=== PATIENT | female | born 1970 | race Caucasian/White ===

== ENCOUNTER 2016-12-26 16:07 | Inpatient (IN) | payer OTHER ==
--- NOTE | ~2016-12-26 | OP ---
Record Of Operation [facility] [address] [place]. [address] NAME: EDWARDO VENEGAS : 74 STATUS : ADM IN [facility]#: [id number] AGE: 46 ADM/REG DATE : 12/26/16 MR#: [id number] REPORT SERV DATE: 12/30/16 DICTATED BY: GRISEL DIEHL DATE: 12/30/16 REPORT STATUS : Draft TRANSCRIBED BY: MODL DATE: 12/30/16 DATE OF PROCEDURE: 12/30/2016 PREOPERATIVE DIAGNOSES: 1. Right ureteral stent. 2. Recent septic episode, secondary to right distal ureteral stone. POSTOPERATIVE DIAGNOSES: 1. Right ureteral stent. 2. Recent septic episode, secondary to right distal ureteral stone. PROCEDURE PERFORMED: Cystoscopy with right ureteral stent removal. SURGEON: Grisel Diehl M.D. ANESTHESIA: None. COMPLICATIONS: None. SPECIMEN: The right ureteral stent was removed intact and un-encrusted. INDICATION: Ms Venegas is a 46-year-old, who I saw at [facility] in the ICU approximately four weeks ago. She was floridly septic, secondary to an obstructing small right distal ureteral stone. She was stented emergently, she had a prolonged ICU course, and was ultimately discharged to home after approximately a three week stay. Her stone was 3 to 4 mm in the right distal ureter. It was not removed at the time of stent placement. IMAGING: CT scan performed on this admission was reviewed. The stent is in good position. There is no evidence of any retained stone in the right distal ureter. It appears to have passed with ureteral stenting. TECHNIQUE: Verbal consent was obtained. The meatus was prepped in the frogleg position. Flexible cystoscope was introduced, the nursing staff was present for the procedure. The bladder was unremarkable. I grasped the indwelling right ureteral stent. It was removed intact and un-encrusted. No stone or lesion in the bladder. POSTOPERATIVE PLAN: Mrs. Venegas should not require any further urologic follow up at this point. This was her first stone and no other stones were visible on the recent CT. [facility]/MELQUIADES Grisel Diehl M.D. Record Of Operation [facility] [address] [facility] [place]. [address] NAME: EDWARDO VENEGAS : 74 STATUS : ADM IN PAT#: [id number] AGE: 46 ADM/REG DATE : 12/26/16 MR#: [id number] REPORT SERV DATE: 12/30/16 DICTATED BY: GRISEL DIEHL DATE: 12/30/16 REPORT STATUS : Draft TRANSCRIBED BY: MODL DATE: 12/30/16 / [id number] CC: Rolf Bermudez MD
--- NOTE | ~2016-12-26 | DS ---
Discharge Summary [facility] [address] [place] [address] NAME: EDWARDO MOLINA : 74 STATUS : DIS IN PAT#: [id number] AGE: 46 ADM/REG DATE : 12/26/16 MR#: [id number] REPORT SERV DATE: 01/02/17 DICTATED BY: DATE: REPORT STATUS : Draft TRANSCRIBED BY: MODL DATE: 01/01/17 ADMISSION DATE: 12/26/2016 DISCHARGE DATE: 01/01/2017 ADDENDUM: This discharge took me greater than 30 minutes due to medication reconciliation, discussion of followup as an outpatient, and coordinating with Case Management for discharge planning. ADA/MELQUIADES Milton Rock NP / [id number] CC: Rolf Bermudez MD
--- NOTE | ~2016-12-26 | CN ---
Consultation Report [facility] [address] [place]. [address] NAME: EDWARDO MOLINA : 74 STATUS : ADM IN PAT#: [id number] AGE: 46 ADM/REG DATE : 12/26/16 MR#: [id number] REPORT SERV DATE: 12/27/16 DICTATED BY: GRISEL DIEHL DATE: 12/27/16 REPORT STATUS : Draft TRANSCRIBED BY: MODL DATE: 12/27/16 CONSULTATION DATE OF CONSULTATION: 12/27/2016 REFERRING PHYSICIAN: Frankie Gutiérrez M.D. HISTORY: This is a 46-year-old white female, whom we are asked to see in followup for a history of urolithiasis and UTI. She has a very complex history. It sounds like she was admitted early last month at the [facility] with what I presume to be an obstructing ureteral stone and urosepsis. Dr. Diehl placed a ureteral stent. She had full-blown septic shock associated with multiorgan system failure. Apparently, she coded multiple times and was intubated and had a prolonged hospital stay. She also had acute renal failure and was on dialysis at one point, although, this has since been discontinued. She has ischemic fingers and toes bilaterally at this point. She was actually admitted to the hospital yesterday when she came to the emergency room feeling weak, dizzy, and nauseated etc. She also had some right upper extremity swelling and subjective fevers and chills at home. She has been found to have an upper extremity vascular thrombosis. From a standpoint, she says her only real complaint is urinary frequency roughly every couple of hours. She denies any dysuria or hematuria. She denies any incontinence. She basically says she has been voiding reasonably well. She is not to her knowledge passed any stones. Presumably, she has an outpatient followup scheduled with Dr. Dielh. She does mention diminished function and feeling in the fingers and toes bilaterally. PAST MEDICAL HISTORY: Otherwise includes hypertension, there is a history of C diff colitis as well. PREVIOUS SURGICAL HISTORY: Hysterectomy and delivery. SOCIAL HISTORY: She has a history of smoking, but not for the past eight years or so. She does not drink or use drugs. MEDICATIONS: Aspirin, Coreg, Benadryl, Percocet, Protonix, and Vancocin. ALLERGIES: SHE IS ALLERGIC TO HYDROCODONE. PHYSICAL EXAMINATION: GENERAL: She is a pleasant white female, in no distress at this time. She appears comfortable lying in bed. She is alert, oriented, and conversive. VITAL SIGNS: She is afebrile, blood pressure is currently 107/57, and respirations 16. HEENT: Pupils are equal, round, and reactive. Oropharynx is clear. LUNGS: Clear. HEART: Regular. BACK: Perhaps minimal right CVA tenderness. Consultation Report [address] [place]. [address] NAME: EDWARDO MOLINA : 74 STATUS : ADM IN [facility]#: [id number] AGE: 46 ADM/REG DATE : 12/26/16 MR#: [id number] REPORT SERV DATE: 12/27/16 DICTATED BY: GRISEL DIEHL DATE: 12/27/16 REPORT STATUS : Draft TRANSCRIBED BY: MELQUIADES DATE: 12/27/16 ABDOMEN: Soft, perhaps mildly tender in the right upper quadrant and right flank. GENITOURINARY: The bladder is not palpable. EXTREMITIES: Note is made of ischemic fingertips on all digits bilaterally and ischemic toes on all digits bilaterally as well. LABORATORY DATA: PTT is 94. CMP today shows a creatinine of 2.1. CBC white cell count is 12.8, H and H 7.6 and 23. Urinalysis on admission showed 182 white cells, 182 reds, along with epithelial cells, yeast, and bacteria. CT of the abdomen and pelvis revealed a right ureteral stent to be in excellent position. No hydronephrosis was noted. I was unable to identify any stones on either side. There was no sign of any sort of renal mass, abscess, or perinephric process. Mild right-sided renal edema was noted. V/Q scan was negative. Doppler ultrasound of the upper extremity showed thrombus within the right IJ and in the right basilic vein. IMPRESSION: 1. Right upper extremity deep venous thrombosis. 2. History of a urosepsis, with septic shock, and prolonged recent hospitalization at [facility]. 3. History of urolithiasis presumably with obstruction and urosepsis, status post right ureteral stent placement by Dr. Diehl during the [facility] admission. 4. History of multiorgan system failure, with respiratory failure, and acute renal failure requiring dialysis during this recent hospitalization associated with sepsis. Now off dialysis with chronic renal disease and a creatinine of approximately 2.2. 5. Apparent urinary tract infection on Rocephin. 6. Ischemic fingers and toes. 7. History of Clostridium difficile colitis. RECOMMENDATIONS: From a standpoint, we would continue with the Rocephin and await her urine culture results. The right stent appears to be functional given lack of hydronephrosis noted on CT scan. Although, I can't specifically identify any urinary stones, there may well be a ureteral stone masked by the presence of the stent. While she is here, we will check a postvoid residual urine volume with bladder scan. Dr. Diehl will return on Thursday and will provide more details on the possible ureteral stone and will decide on when to remove the stent. DICTATED BY: Aron Mata/MELQUIADES Grisel Diehl M.D. / [id number] Consultation Report [address] [place]. [address] NAME: EDWARDO MOLINA : 74 STATUS : ADM IN [facility]#: [id number] AGE: 46 ADM/REG DATE : 12/26/16 MR#: [id number] REPORT SERV DATE: 12/27/16 DICTATED BY: GRISEL DIEHL DATE: 12/27/16 REPORT STATUS : Draft TRANSCRIBED BY: MELQUIADES DATE: 12/27/16 CC: Frankie Gutiérrez M.D.
--- NOTE | ~2016-12-26 | HP ---
History And Physical [place] [id number] [facility] [place]. [address] NAME: EDWARDO MOLINA : 74 STATUS : ADM IN [facility]#: [id number] AGE: 46 ADM/REG DATE : 12/26/16 MR#: [id number] REPORT SERV DATE: 12/27/16 DICTATED BY: SANDEE WORTHINGTON DATE: 12/26/16 REPORT STATUS : Draft TRANSCRIBED BY: MODMiller DATE: 12/26/16 DATE OF ADMISSION: 12/26/2016 CHIEF COMPLAINT: Syncope and increased swelling of the right upper extremity. HISTORY OF PRESENT ILLNESS: This is a 46-year-old female with a past medical history of renal stones, recently admitted to [facility] in October for urosepsis with a renal stone, for which the patient developed severe septic shock and required intubation in ICU and was intubated for approximately two weeks. According to ER physician, Dr. Wellington, it was reported the patient had multiple codes during that hospitalization and also required hemodialysis and now has a dialysis catheter. However, the patient is no longer requiring dialysis at this time. She was seen by a vascular surgeon, Dr. Berry, during that hospital stay for severe ischemia of the patient's digit of the upper extremity as well as lower extremity secondary to her severe septic shock, also seen by Dr. Barcenas, Urology, and reported Dr. Moreno, Nephrology. The patient states that she had black finger tips and toes after her discharge from [facility]. The patient was discharged to home on 12/18/2016. However, the patient states after returning to home, she has had several syncopal episodes as well as intermittent nausea, vomiting, and worsening swelling of the right upper extremity that has become painful secondary to edema. She has had subjective fever and chills. Also, important to note, the patient states that she was treated for C. diff while at [facility]. She denies any recurrent diarrhea and states that she was checked for C. diff before her discharge from [facility] and was found to be negative. However, due to the patient's complaints, she was seen by her primary care at [facility] who ordered an outpatient ultrasound of the right upper extremity that show findings of an acute DVT, and the patient was referred to the emergency department. The patient was seen by Dr. Wellington in the ER who ordered a repeat venous Doppler of the right upper extremity with findings of thrombus occlusion in the right internal jugular vein as well as occlusion of the right basilic vein and heparin drip has been initiated. Also, the patient states that she has complaints of right flank pain and states that she had a renal stone while at [facility] that was not removed, but the patient is to follow up with her urologist. The patient denies any hematemesis. No melena. No hematochezia. She states she has a good urine output and is unsure of the guest service team leader she is supposed to follow up with at discharge. The hospitalist was called to admit the patient into the hospital. Dr. Wellington did discuss with Critical Care and considering the patient is currently stable recommended admission to the Hospitalist Service. The patient also has complaint of some intermittent shortness of breath and dyspnea on exertion with a complaint of fullness in the patient while at home. The patient states that she has been ambulating at home since her discharge and occasional with assistance. REVIEW OF SYSTEMS: Please refer to HPI. PAST MEDICAL HISTORY: Hypertension, renal stone, pyelonephritis, C. diff, septic shock. PAST SURGICAL HISTORY: Hysterectomy and . History And Physical [address] [address] NAME: EDWARDO MOLINA : 74 STATUS : ADM IN [facility]#: [id number] AGE: 46 ADM/REG DATE : 12/26/16 MR#: [id number] REPORT SERV DATE: 12/27/16 DICTATED BY: SANDEE WORTHINGTON DATE: 12/26/16 REPORT STATUS : Draft TRANSCRIBED BY: MELQUIADES DATE: 12/26/16 SOCIAL HISTORY: Quit tobacco abuse approximately eight years ago. No alcohol or illicit drugs. Has a daughter currently at bedside assisting with her history. FAMILY HISTORY: Hypertension and unknown cancer. ALLERGIES: ALLERGIES TO HYDROCODONE. HOME MEDICATIONS: Aspirin 81 mg p.o. daily, Coreg 12.5 mg p.o. b.i.d., diphenhydramine p.r.n., Percocet 5/325 one tab p.o. b.i.d. p.r.n., Protonix 40 mg p.o. daily, Vancocin 125 mg p.o. q.6 hours for which the patient states her last dose is due today. PHYSICAL EXAMINATION: VITAL SIGNS: Blood pressure 116/59 with a pulse of 86, respiration of 24, saturating 100% on room air, temp of 98.2. GENERAL: The patient is alert and oriented x3. HEENT: Pupils equal, round, and reactive to light. Extraocular muscles are intact. Moist mucous membranes. CARDIOVASCULAR: S1, S2. Regular rate and rhythm. No murmurs, rubs, or gallops. RESPIRATORY: Clear auscultation bilaterally. No wheezes or crackles. No signs of tachypnea. ABDOMEN: Positive bowel sounds. Soft with some tenderness to palpation in the upper quadrant, right lower quadrant, and right flank. No rebound. No abdominal distention. EXTREMITIES: The patient with necrotic, ischemic finger tips to the bilateral upper extremities as well as the bilateral toes. She does have palpable radial pulse of the left upper extremity, it is hard to palpate the radial pulse of the right upper extremity due to severe edema as well as severe scarring of the radial area. The patient does have dorsalis pedis of the bilateral lower extremities pulses palpable. Extremities are warm. Some contracture of the right hand secondary to severe pitting edema. Has 2+ pitting edema of the right upper extremity. NEURO: Cranial nerves II through XII are grossly intact. Limited movement of the right upper extremity approximately 3/5 power of the right upper extremity and 4/5 left upper extremity and bilateral lower extremities. SKIN: As mentioned above. RADIOGRAPHIC FINDINGS: 1. A CT of the abdomen and pelvis with no contrast showing a mildly enlarged right kidney in compared to the left, double-J ureter stent present in the right side, no hydronephrosis, no nephroureterolithiasis. No perinephric stranding on either side. There is some mild right-sided renal edema. No other evidence of acute intraabdominal or pelvic pathology, read by Dr. Walker. 2. Venous Doppler ultrasound of the right upper extremity showing thrombus with occlusion in the right internal jugular vein and right basilic vein. 3. Chest x-ray showing no acute cardiopulmonary abnormality. The dialysis catheter and the right central venous catheter with tip in the superior vena cava. 4. EKG: With a sinus rhythm, no ST elevation. LABORATORY DATA: Sodium 139, potassium 4.4 with a chloride of 106, bicarb of 22, BUN of 24, History And Physical [facility] [address] [place]. [address] NAME: EDWARDO MOLINA : 74 STATUS : ADM IN [facility]#: [id number] AGE: 46 ADM/REG DATE : 12/26/16 MR#: [id number] REPORT SERV DATE: 12/27/16 DICTATED BY: SANDEE WORTHINGTON DATE: 12/26/16 REPORT STATUS : Draft TRANSCRIBED BY: MODL DATE: 12/26/16 with a creatinine of 2.36 with an unknown baseline at this time. Glucose of 91. Albumin of 2.7, lactate was 0.9 with a T bilirubin of 0.3, alkaline phosphatase of 135, ALT of 25, AST of 15. White count of 15.2 with a hemoglobin of 8.3, platelet count 482. INR of 1.2. UA; specific gravity 1.009 with large amount of blood, large amount leukocyte esterase. No nitrites with greater than 182 white blood cells and red blood cells and a few bacteria. ASSESSMENT AND PLAN: 1. Acute right upper extremity deep venous thrombosis. 2. Syncope. 3. Acute on chronic ischemia of digits secondary to history of septic shock. 4. Leukocytosis. 5. Intractable nausea and vomiting. 6. Chronic kidney disease. 7. History of Clostridium difficile. The patient will be admitted and we will continue with IV heparin drip. Also, we will consult Vascular Surgery for the patient's ischemia which was secondary to septic shock, however, the patient requested not to be seen by Dr. Berry. Also, we will check a V/Q scan to rule out any underlying pulmonary embolism and also we will check an echocardiogram. We will follow up with the patient's blood cultures and urine culture and continue prophylactic oral Vancocin for recent Clostridium difficile while at [facility]. The patient still has a dialysis catheter which most likely needs removal, if not being. Recommend to consult Nephrology, however, I will leave this final decision up to Dr. Gutiérrez, who will be the primary attending for this patient during this hospital stay. Also, we will send for medical records from [facility] for the patient's extensive history, and we will consult the patient's urologist, Dr. Barcenas. The patient will be admitted to Dr. Gutiérrez who will attend to this patient's care and close monitoring. [facility]/MODL Sandee Worthington M.D. / [id number] CC: Frankie Gutiérrez M.D. [facility]
--- NOTE | ~2016-12-26 | IDS ---
Interim Discharge Summary [facility] [address] [place]. [address] NAME: EDWARDO MOLINA : 74 STATUS : ADM IN [facility]#: [id number] AGE: 46 ADM/REG DATE : 12/26/16 MR#: [id number] REPORT SERV DATE: 12/29/16 DICTATED BY: CHEPE ARMENDARIZ DATE: 12/29/16 REPORT STATUS : Draft TRANSCRIBED BY: MODL DATE: 12/29/16 ADMISSION DATE: 12/26/2016 DISCHARGE DATE: REASON FOR ADMISSION: This is a 46-year-old female, who had a prolonged hospital stay at [facility] for urosepsis in which she developed severe septic shock and septic emboli resulting in ischemic fingers and toes. She came into our emergency room after having discharged from [facility] being treated there for also C. diff, came in to our emergency room with complaint of syncope and increased swelling of the right lower extremity. INTERIM DISCHARGE DIAGNOSES: 1. Right upper extremity deep vein thrombosis status post vascular catheter. 2. Clostridium difficile. 3. Status post sepsis with shock and multiorgan failure. 4. Upper and lower digital ischemia secondary to septic emboli. 5. Acute kidney injury on chronic kidney disease. 6. Anemia with iron deficiency anemia. 7. History of urolithiasis status post ureteral stent. 8. MRSA urinary tract infection. HOSPITAL COURSE: 1. Right upper extremity DVT. In the emergency room, the patient was identified with the right upper extremity DVT showing thrombus with occlusion in right internal jugular vein and right basilic vein. She was started on IV heparin drip and is still on it. DVT is in association with vascular catheter that she had placed at [facility] for hemodialysis after having multiorgan failure due to sepsis. She was scheduled to have the vascular catheter removed outpatient but never followed up with that appointment, ended up here at our hospital and being admitted instead. The vascular catheter was removed today by Interventional Radiology. I have had Case Management check on anticoagulation options specifically for Simin. Her insurance prefers Xarelto so we will be switching her to Xarelto at discharge, and giving a prescription for that. 2. MRSA UTI. The patient was discovered to have UTI here at the hospital. Urine culture would grow out MRSA. Initially, she was on Rocephin, and one Gram positive cocci were growing out. She was given a single dose of vancomycin. We have since put her on oral Bactrim, she will need it for six more days. We will need to watch renal function closely as she is still in the process of recovering from acute kidney injury which was secondary to ATN with her sepsis. Due to the fact there was no glomerular damage, I will probably be okay with using Bactrim but we will check a creatinine and BUN again tomorrow. 3. Clostridium difficile. The patient was discharged on oral vancomycin from [facility]. We have continued her on oral vancomycin here at the hospital. However, now that we are forced to treat this UTI, we will need to continue oral vancomycin for the duration of the oral Bactrim and then do a tapering at conclusion of that to make sure she has not redeveloped active acute C. diff. 4. Upper and lower digital ischemia. Again, the patient has dry gangrene in digital Interim Discharge Summary [address] [address] NAME: EDWARDO MOLINA : 74 STATUS : ADM IN [facility]#: [id number] AGE: 46 ADM/REG DATE : 12/26/16 MR#: [id number] REPORT SERV DATE: 12/29/16 DICTATED BY: CHEPE ARMENDARIZ DATE: 12/29/16 REPORT STATUS : Draft TRANSCRIBED BY: MELQUIADES DATE: 12/29/16 ischemia secondary to septic emboli developed in association with severe urosepsis. Vascular Surgery has been following the patient here at the hospital. They did get arterial duplex lower extremities which showed no occlusion or stenosis. She does have warm extremities and palpable pulses in both upper and lower extremities. No intervention is planned as the gangrenous digits will be likely self amputating. Unclear which and how many of her digits will survive but the toes appear to be most risk. The patient also has a contracted right hand and will need OT outpatient followup. They are to be seen today by Occupational Therapy here at the hospital. 5. Acute kidney injury. The patient's acute kidney injury is still in the process of resolving but she does have good urine output, and her creatinine has been lowering while here at the hospital, initially 2.36 on admission, and it has trended down to 1.8. 6. Anemia, iron deficiency anemia. Iron levels were low and so was her hemoglobin. She has a hemoglobin 7.4, which is stable. We have given her IV iron Dextran here at the hospital for iron replacement. 7. History of urolithiasis status post right ureteral stent. The patient does have a right ureteral stent in place. Dr. Barcenas saw the patient today, and it was decided that he would like to take the stent out while here at the hospital. He plans on doing that tomorrow. For that reason, we will leave the patient on IV heparin drip and hold it prior to procedure. CURRENT MEDICATIONS: 1. Aspirin 81 mg p.o. daily. 2. Carvedilol 6.25 mg p.o. b.i.d. 3. Pepcid 20 mg p.o. daily. 4. Multivitamin one tablet daily. 5. Florastor one capsule p.o. b.i.d. 6. Oral vancomycin 125 mg p.o. liquid q.6 hours. 7. Bactrim DS 1 tablet p.o. b.i.d. CURRENT PLAN: Patient telephonic case manager worked with the patient to decide on whether she is going to inpatient rehab versus outpatient physical therapy and occupational therapy. We will at minimum arrange home health for further wound care and occupational therapy but Case Management trying to discern from the patient whether she would like inpatient rehab or outpatient. The patient care to be assumed by Rolf Bermudez or [place] Rock NP this week. [facility]/MELQUIADES Chepe Armendariz APN / [id number] Interim Discharge Summary [address] [address] NAME: EDWARDO MOLINA : 74 STATUS : ADM IN [facility]#: [id number] AGE: 46 ADM/REG DATE : 12/26/16 MR#: [id number] REPORT SERV DATE: 12/29/16 DICTATED BY: CHEPE ARMENDARIZ DATE: 12/29/16 REPORT STATUS : Draft TRANSCRIBED BY: MELQUIADES DATE: 12/29/16 CC: Frankie Shane Marla, M.BON[address] M.D. Hany A. Naggar, MD
--- NOTE | ~2016-12-26 | DS ---
Discharge Summary [place] [address] [facility] [place]. [address] NAME: EDWARDO MOLINA : 74 STATUS : DIS IN PAT#: [id number] AGE: 46 ADM/REG DATE : 12/26/16 MR#: [id number] REPORT SERV DATE: 01/02/17 DICTATED BY: DATE: REPORT STATUS : Draft TRANSCRIBED BY: MODL DATE: 01/01/17 ADMISSION DATE: 12/26/2016 DISCHARGE DATE: 01/01/2017 DISCHARGE DIAGNOSES: 1. Right upper extremity DVT, status post Vas-Cath. 2. Clostridium difficile. 3. Acute kidney injury, on chronic kidney disease, stage 3. 4. Iron deficiency anemia. 5. Upper and lower extremity ischemia/infarct due to septic emboli. 6. Urolithiasis, status post right and left ureteral stents x2. CONSULTING PHYSICIANS: Ramon Barcenas M.D. with Urology. DISCHARGE MEDICATIONS: Include aspirin 81 mg p.o. daily, Coreg 6.25 mg p.o. b.i.d., Pepcid 20 mg p.o. daily, multivitamin one tablet p.o. daily, Florastor one cap p.o. b.i.d., Bactrim DS one tab p.o. b.i.d. x4 days, vancomycin 125 mg p.o. liquid q.6 hours, Percocet 5/325 mg tablet one tab p.o. b.i.d. p.r.n. for pain, Benadryl 25 mg p.o. p.r.n. for itching, Xarelto 50 mg p.o. b.i.d. x21 days, then Xarelto 20 mg p.o. daily x2 months, and Zofran ODT 4 mg p.o. q.6 hours p.r.n. for nausea. IMAGING: Portable chest x-ray demonstrated no acute cardiopulmonary abnormality. CT of the abdomen and pelvis without contrast demonstrated right-sided double J ureteral stents in place. There is nonspecific mild right renal edema and mild right renal enlargement compared to the left kidney. No hydronephrosis or nephrolithiasis noted. No other evidence of acute intraabdominal or pelvic pathology on this noncontrast CT. Upper extremity Doppler ultrasound was performed. Arterial vessels were patent. No evidence of any occlusion or high-grade stenosis was suggested. Hyperemic changes are compatible with soft tissue infection. Bilateral lower extremity ultrasound was obtained. No arterial occlusion or stenosis in the lower extremities was noted. Hyperemic changes in the posterior tibial artery were noted consistent with underlying gangrenous changes in the foot. V/Q scan was performed which showed normal ventilation/perfusion at the lungs. Venous Doppler of the upper extremity, left arm, demonstrated thrombus with occlusion of the right internal jugular vein and the right basilic vein. An echocardiogram was performed which showed normal left ventricular systolic function with an estimated left ventricular ejection fraction of 55%. Right ventricular size was normal with regular function. Normal diastolic function was noted. Pulmonary hypertension was absent. No significant valvular disease was noted. For full H and P, please refer to Dr. eKiko Jessica's dictation on 12/26/2016. Please also see Dr. Ramon Barcenas's consultation dictation on 12/27/2016 as well as Mr. Chepe Singletary's interim discharge summary dictated on 12/29/2016. HOSPITAL COURSE/PROBLEM LIST: 1. Right upper extremity DVT, status post Vas-Cath. The patient was placed on a heparin drip which was discontinued yesterday. We placed the patient on Eliquis p.o., and I will discharge the patient on Xarelto, which is what her insurance will cover for the next three months. She wanted to follow up with her primary care provider for further Discharge Summary [address] [address] NAME: EDWARDO MOLINA : 74 STATUS : DIS IN PAT#: [id number] AGE: 46 ADM/REG DATE : 12/26/16 MR#: [id number] REPORT SERV DATE: 01/02/17 DICTATED BY: DATE: REPORT STATUS : Draft TRANSCRIBED BY: MODL DATE: 01/01/17 evaluation and management. 2. Clostridium difficile, this has resolved. However, I will continue her p.o. vancomycin considering she is being treated for UTI with Bactrim. 3. Chronic kidney disease stage 3. Currently, her creatinine level is 1.86, which appears to be her baseline level, which she will need close followup with her primary care provider, and further monitoring of her creatinine level. She will make an appointment within one week post discharge. 4. Iron deficiency anemia. Her H and H are stable at 8.7 and 26.3. 5. Digital ischemia/gangrene due to septic emboli in the upper and lower extremities. The patient will be seen in [facility] as an outpatient for occupational therapy and physical therapy. Wound Care team evaluated this patient. We will continue the plan as an outpatient for her gangrenous extremities. 6. History urolithiasis. Dr. Barcenas followed her during her hospital stay. He has signed off, and she will follow up with him as an outpatient as needed. Currently, the patient is hemodynamically stable. Last blood pressure 117/64, temp 97.5, heart rate 69, respirations 18, and the patient is at 100% on room air. Again, the patient will need close followup with the primary care provider for further monitoring of creatinine levels especially since I am going to continue Bactrim for MRSA UTI infection for the next four days. It has been stable for the last three days while she is taking this; however, she does need close followup. CLR/MODL Milton Rock NP / [id number] CC: MD Richie Payton M.D.
[2016-12-26 15:51] LABS: BASOPHILS 0.7 %; BASOPHILS ABSOLUTE 0.11 10/3/uL (0.0-0.16); EOSINOPHILS 4.9 %; EOSINOPHILS ABSOLUTE 0.75 10/3/uL (0.0-0.53); ER CBC TAT 0 Hrs 11 Mins; HEMATOCRIT 25.3 % (36.0-48.0); HEMOGLOBIN 8.3 g/dL (12.0-16.0); IMMATURE GRANULOCYTES 1.1 %; IMMATURE GRANULOCYTES ABSOLUTE 0.17 10/3/uL (0.0-0.11); LYMPHOCYTES 13.9 %; LYMPHOCYTES ABSOLUTE 2.12 10/3/uL (0.67-4.30); MANUAL DIFF NO %; MEAN CORPUS HGB CONC 32.8 g/dL (32.0-36.0); MEAN CORPUSCULAR HEMOGLOB 28.5 pg (26.0-34.0); MEAN CORPUSCULAR VOLUME 86.9 fL (80-100); MEAN PLATELET VOLUME 8.2 fL (9.2-13.0); MONOCYTES 5.8 %; MONOCYTES ABSOLUTE 0.89 10/3/uL (0.21-1.20); NEUTROPHILS 73.6 %; PLATELET COUNT 482 10/3/uL (150-400); RBC DISTRIBUTION WIDTH 14.2 % (12.0-16.0); RED CELL COUNT 2.91 10/6/uL (4.0-5.6); WHITE BLOOD CELLS 15.2 10/3/uL (4.5-10.5)
[2016-12-26 15:58] LABS: INTERNATIONAL NORMAL RATI 1.2 UNITS (-); PARTIAL THROMBO TIME 33.1 SEC (22.5-37.2); PROTIME (NOT ORD) 14.7 SEC (12.0-14.5)
[2016-12-26 16:01] LABS: A/G RATIO 0.6 (0.7-1.9); ALBUMIN 2.7 G/DL (3.5-5.0); ALKALINE PHOSPHATASE 135 U/L (45-117); BUN (BLOOD UREA NITROGEN) 24 MG/DL (6-23); CALCIUM, SERUM 8.6 MG/DL (8.5-10.4); CHLORIDE, SERUM 106 MMOL/L (96-112); CO2 (CARBON DIOXIDE) 22 MMOL/L (24-34); CREATININE 2.36 MG/DL (0.55-1.02); GFR AFRICAN AMERICAN 28 ML/MIN (>=60); GFR NON AFRICAN AMERICAN 24 ML/MIN (>=60); GLOBULIN 4.4 G/DL (2.5-4.1); GLUCOSE, SERUM 91 MG/DL (60-99); POTASSIUM, SERUM 4.4 MMOL/L (3.5-5.3); SGOT(AST) 15 U/L (5-40); SGPT(ALT) 25 U/L (5-65); SODIUM, SERUM 139 MMOL/L (135-148); TOTAL BILIRUBIN 0.3 MG/DL (0-1.2); TOTAL PROTEIN 7.1 G/DL (6.0-8.5)
[2016-12-26 16:05] LABS: LACTATE 0.9 MMOL/L (0.3-2.4)
[2016-12-26] MEDS ORDERED: COREG12 PO (16:27)
[2016-12-26] MEDS ORDERED: PCET PO (16:27)
[2016-12-26] MEDS ORDERED: VANCOCIN HCL125 MG PO (16:30)
[2016-12-26] MEDS ORDERED: PROTONIX PO (16:31)
[2016-12-26] MEDS ORDERED: ASAB PO (16:32)
[2016-12-26] MEDS ORDERED: BEN25 PO (16:32)
[2016-12-26 16:48] LABS: PROCALCITONIN < 0.05 ng/mL (<0.5)
[2016-12-26 17:02] LABS: ASCORBIC ACID (UR NOT ORDER) NEG (NEG); BILIRUBIN, URINE NEGATIVE (NEG); KETONE, URINE NEGATIVE (NEG); LEUKOCYTE ESTERASE(NOT OR LARGE (NEG); NITRITE (URINE) NEG (NEG)
[2016-12-26 17:03] LABS: WBC (NOT ORDERED) (RFLEX) > 182 (0-5)
[2016-12-27 04:29] LABS: BASOPHILS 0.6 %; BASOPHILS ABSOLUTE 0.08 10/3/uL (0.0-0.16); EOSINOPHILS 5.2 %; EOSINOPHILS ABSOLUTE 0.66 10/3/uL (0.0-0.53); HEMATOCRIT 23.1 % (36.0-48.0); HEMOGLOBIN 7.6 g/dL (12.0-16.0); IMMATURE GRANULOCYTES 1.5 %; IMMATURE GRANULOCYTES ABSOLUTE 0.19 10/3/uL (0.0-0.11); LYMPHOCYTES 18.4 %; LYMPHOCYTES ABSOLUTE 2.35 10/3/uL (0.67-4.30); MANUAL DIFF NO %; MEAN CORPUS HGB CONC 32.9 g/dL (32.0-36.0); MEAN CORPUSCULAR HEMOGLOB 28.7 pg (26.0-34.0); MEAN CORPUSCULAR VOLUME 87.2 fL (80-100); MEAN PLATELET VOLUME 8.3 fL (9.2-13.0); MONOCYTES 5.6 %; MONOCYTES ABSOLUTE 0.72 10/3/uL (0.21-1.20); NEUTROPHILS 68.7 %; NEUTROPHILS ABSOLUTE 8.76 10/3/uL (2.02-8.40); PLATELET COUNT 466 10/3/uL (150-400); RED CELL COUNT 2.65 10/6/uL (4.0-5.6); WHITE BLOOD CELLS 12.8 10/3/uL (4.5-10.5)
[2016-12-27 04:43] LABS: INTERNATIONAL NORMAL RATI 1.2 UNITS (-); PROTIME (NOT ORD) 15.3 SEC (12.0-14.5)
[2016-12-27 04:45] LABS: A/G RATIO 0.6 (0.7-1.9); ALBUMIN 2.3 G/DL (3.5-5.0); ALKALINE PHOSPHATASE 127 U/L (45-117); BUN (BLOOD UREA NITROGEN) 23 MG/DL (6-23); CHLORIDE, SERUM 108 MMOL/L (96-112); CO2 (CARBON DIOXIDE) 22 MMOL/L (24-34); CREATININE 2.17 MG/DL (0.55-1.02); GFR AFRICAN AMERICAN 31 ML/MIN (>=60); GFR NON AFRICAN AMERICAN 27 ML/MIN (>=60); POTASSIUM, SERUM 4.2 MMOL/L (3.5-5.3); SGOT(AST) 10 U/L (5-40); SGPT(ALT) 19 U/L (5-65); SODIUM, SERUM 142 MMOL/L (135-148); TOTAL BILIRUBIN 0.3 MG/DL (0-1.2); TOTAL PROTEIN 6.3 G/DL (6.0-8.5)
[2016-12-27 04:47] LABS: GLUCOSE, SERUM 149 MG/DL (60-99)
[2016-12-28 06:11] LABS: BASOPHILS 0.7 %; BASOPHILS ABSOLUTE 0.09 10/3/uL (0.0-0.16); EOSINOPHILS 5.3 %; EOSINOPHILS ABSOLUTE 0.66 10/3/uL (0.0-0.53); HEMATOCRIT 23.5 % (36.0-48.0); HEMOGLOBIN 7.8 g/dL (12.0-16.0); IMMATURE GRANULOCYTES ABSOLUTE 0.13 10/3/uL (0.0-0.11); LYMPHOCYTES 18.5 %; LYMPHOCYTES ABSOLUTE 2.31 10/3/uL (0.67-4.30); MEAN CORPUS HGB CONC 33.2 g/dL (32.0-36.0); MEAN CORPUSCULAR HEMOGLOB 28.5 pg (26.0-34.0); MEAN CORPUSCULAR VOLUME 85.8 fL (80-100); MONOCYTES 5.7 %; MONOCYTES ABSOLUTE 0.71 10/3/uL (0.21-1.20); NEUTROPHILS 68.8 %; NEUTROPHILS ABSOLUTE 8.57 10/3/uL (2.02-8.40); PLATELET COUNT 429 10/3/uL (150-400); RED CELL COUNT 2.74 10/6/uL (4.0-5.6); RETICULOCYTE COUNT 1.4 % (0.5-2.5); RETICULOCYTE COUNT ABSOLUTE 38.9 10/3/uL (20.2-119.8); WHITE BLOOD CELLS 12.5 10/3/uL (4.5-10.5)
[2016-12-28 06:13] LABS: MANUAL DIFF NO %
[2016-12-28 06:23] LABS: CALCIUM, SERUM 8.6 MG/DL (8.5-10.4); CHLORIDE, SERUM 105 MMOL/L (96-112); CO2 (CARBON DIOXIDE) 24 MMOL/L (24-34); CREATININE 1.85 MG/DL (0.55-1.02); FERRITIN 53 NG/ML (8-252); GFR AFRICAN AMERICAN 38 ML/MIN (>=60); GFR NON AFRICAN AMERICAN 33 ML/MIN (>=60); GLUCOSE, SERUM 136 MG/DL (60-99); POTASSIUM, SERUM 4.1 MMOL/L (3.5-5.3); SGOT(AST) 7 U/L (5-40); SGPT(ALT) 9 U/L (5-65); SODIUM, SERUM 142 MMOL/L (135-148); TOTAL BILIRUBIN 0.2 MG/DL (0-1.2); TOTAL PROTEIN 6.8 G/DL (6.0-8.5)
[2016-12-28 06:25] LABS: ALBUMIN 3.4 G/DL (3.5-5.0); ALKALINE PHOSPHATASE 92 U/L (45-117); BUN (BLOOD UREA NITROGEN) 16 MG/DL (6-23); GLOBULIN 3.4 G/DL (2.5-4.1); PARTIAL THROMBO TIME > 150.0 SEC (22.5-37.2)
[2016-12-29 04:45] LABS: BASOPHILS 0.6 %; BASOPHILS ABSOLUTE 0.08 10/3/uL (0.0-0.16); EOSINOPHILS ABSOLUTE 0.63 10/3/uL (0.0-0.53); HEMOGLOBIN 7.4 g/dL (12.0-16.0); IMMATURE GRANULOCYTES 0.9 %; IMMATURE GRANULOCYTES ABSOLUTE 0.11 10/3/uL (0.0-0.11); LYMPHOCYTES 18.3 %; LYMPHOCYTES ABSOLUTE 2.29 10/3/uL (0.67-4.30); MEAN CORPUS HGB CONC 33.6 g/dL (32.0-36.0); MEAN CORPUSCULAR HEMOGLOB 28.8 pg (26.0-34.0); MEAN CORPUSCULAR VOLUME 85.6 fL (80-100); MEAN PLATELET VOLUME 8.3 fL (9.2-13.0); MONOCYTES 5.8 %; MONOCYTES ABSOLUTE 0.73 10/3/uL (0.21-1.20); NEUTROPHILS 69.4 %; NEUTROPHILS ABSOLUTE 8.65 10/3/uL (2.02-8.40); PLATELET COUNT 376 10/3/uL (150-400); RED CELL COUNT 2.57 10/6/uL (4.0-5.6); WHITE BLOOD CELLS 12.5 10/3/uL (4.5-10.5)
[2016-12-29 04:49] LABS: MANUAL DIFF NO %
[2016-12-29 04:50] LABS: BUN (BLOOD UREA NITROGEN) 16 MG/DL (6-23); CALCIUM, SERUM 7.8 MG/DL (8.5-10.4); CHLORIDE, SERUM 107 MMOL/L (96-112); CO2 (CARBON DIOXIDE) 21 MMOL/L (24-34); CREATININE 1.88 MG/DL (0.55-1.02); GFR AFRICAN AMERICAN 37 ML/MIN (>=60); GFR NON AFRICAN AMERICAN 32 ML/MIN (>=60); POTASSIUM, SERUM 3.8 MMOL/L (3.5-5.3); SODIUM, SERUM 141 MMOL/L (135-148)
[2016-12-29 04:53] LABS: GLUCOSE, SERUM 236 MG/DL (60-99)
[2016-12-30 06:36] LABS: BASOPHILS 0.8 %; BASOPHILS ABSOLUTE 0.08 10/3/uL (0.0-0.16); EOSINOPHILS 6.5 %; EOSINOPHILS ABSOLUTE 0.67 10/3/uL (0.0-0.53); IMMATURE GRANULOCYTES 0.8 %; IMMATURE GRANULOCYTES ABSOLUTE 0.08 10/3/uL (0.0-0.11); LYMPHOCYTES 21.1 %; LYMPHOCYTES ABSOLUTE 2.16 10/3/uL (0.67-4.30); MEAN CORPUS HGB CONC 32.9 g/dL (32.0-36.0); MEAN CORPUSCULAR HEMOGLOB 28.4 pg (26.0-34.0); MEAN CORPUSCULAR VOLUME 86.4 fL (80-100); MEAN PLATELET VOLUME 8.2 fL (9.2-13.0); MONOCYTES 4.9 %; NEUTROPHILS 65.9 %; NEUTROPHILS ABSOLUTE 6.77 10/3/uL (2.02-8.40); PLATELET COUNT 348 10/3/uL (150-400); RBC DISTRIBUTION WIDTH 13.9 % (12.0-16.0); RED CELL COUNT 2.43 10/6/uL (4.0-5.6); WHITE BLOOD CELLS 10.3 10/3/uL (4.5-10.5)
[2016-12-30 06:37] LABS: HEMOGLOBIN 6.9 g/dL (12.0-16.0)
[2016-12-30 06:38] LABS: MANUAL DIFF NO %
[2016-12-30 06:44] LABS: CALCIUM, SERUM 8.2 MG/DL (8.5-10.4); CHLORIDE, SERUM 106 MMOL/L (96-112); CO2 (CARBON DIOXIDE) 22 MMOL/L (24-34); GFR AFRICAN AMERICAN 39 ML/MIN (>=60); GFR NON AFRICAN AMERICAN 34 ML/MIN (>=60); POTASSIUM, SERUM 3.6 MMOL/L (3.5-5.3); SODIUM, SERUM 139 MMOL/L (135-148)
[2016-12-30 06:45] LABS: BUN (BLOOD UREA NITROGEN) 12 MG/DL (6-23); GLUCOSE, SERUM 293 MG/DL (60-99)
[2016-12-30 16:42] LABS: HEMATOCRIT 27.5 % (36.0-48.0); HEMOGLOBIN 9.4 g/dL (12.0-16.0)
[2016-12-31 04:57] LABS: BASOPHILS 0.8 %; BASOPHILS ABSOLUTE 0.09 10/3/uL (0.0-0.16); EOSINOPHILS 7.1 %; EOSINOPHILS ABSOLUTE 0.79 10/3/uL (0.0-0.53); HEMOGLOBIN 8.5 g/dL (12.0-16.0); IMMATURE GRANULOCYTES 0.7 %; IMMATURE GRANULOCYTES ABSOLUTE 0.08 10/3/uL (0.0-0.11); LYMPHOCYTES 18.3 %; LYMPHOCYTES ABSOLUTE 2.05 10/3/uL (0.67-4.30); MEAN CORPUSCULAR HEMOGLOB 28.9 pg (26.0-34.0); MEAN PLATELET VOLUME 8.3 fL (9.2-13.0); MONOCYTES ABSOLUTE 0.56 10/3/uL (0.21-1.20); NEUTROPHILS 68.1 %; NEUTROPHILS ABSOLUTE 7.63 10/3/uL (2.02-8.40); PLATELET COUNT 335 10/3/uL (150-400); RBC DISTRIBUTION WIDTH 14.1 % (12.0-16.0); WHITE BLOOD CELLS 11.2 10/3/uL (4.5-10.5)
[2016-12-31 04:59] LABS: MANUAL DIFF NO %; RED CELL COUNT 2.94 10/6/uL (4.0-5.6)
[2016-12-31 05:00] LABS: BUN (BLOOD UREA NITROGEN) 13 MG/DL (6-23); CALCIUM, SERUM 8.7 MG/DL (8.5-10.4); CHLORIDE, SERUM 106 MMOL/L (96-112); CO2 (CARBON DIOXIDE) 23 MMOL/L (24-34); CREATININE 1.71 MG/DL (0.55-1.02); GFR AFRICAN AMERICAN 41 ML/MIN (>=60); GFR NON AFRICAN AMERICAN 36 ML/MIN (>=60); PHOSPHORUS, SERUM 4.8 MG/DL (2.5-4.5); POTASSIUM, SERUM 3.8 MMOL/L (3.5-5.3); SODIUM, SERUM 140 MMOL/L (135-148)
[2016-12-31 05:01] LABS: GLUCOSE, SERUM 121 MG/DL (60-99)
[2017-01-01 05:45] LABS: BASOPHILS 0.6 %; BASOPHILS ABSOLUTE 0.07 10/3/uL (0.0-0.16); EOSINOPHILS 6.5 %; EOSINOPHILS ABSOLUTE 0.73 10/3/uL (0.0-0.53); HEMATOCRIT 26.3 % (36.0-48.0); HEMOGLOBIN 8.7 g/dL (12.0-16.0); IMMATURE GRANULOCYTES 0.6 %; IMMATURE GRANULOCYTES ABSOLUTE 0.07 10/3/uL (0.0-0.11); LYMPHOCYTES 20.2 %; LYMPHOCYTES ABSOLUTE 2.25 10/3/uL (0.67-4.30); MEAN CORPUS HGB CONC 33.1 g/dL (32.0-36.0); MEAN CORPUSCULAR HEMOGLOB 28.3 pg (26.0-34.0); MEAN CORPUSCULAR VOLUME 85.7 fL (80-100); MEAN PLATELET VOLUME 8.6 fL (9.2-13.0); MONOCYTES 6.5 %; MONOCYTES ABSOLUTE 0.73 10/3/uL (0.21-1.20); NEUTROPHILS 65.6 %; PLATELET COUNT 320 10/3/uL (150-400); RBC DISTRIBUTION WIDTH 14.2 % (12.0-16.0); RED CELL COUNT 3.07 10/6/uL (4.0-5.6); WHITE BLOOD CELLS 11.2 10/3/uL (4.5-10.5)
[2017-01-01 05:48] LABS: MANUAL DIFF NO %
[2017-01-01 05:57] LABS: BUN (BLOOD UREA NITROGEN) 16 MG/DL (6-23); CALCIUM, SERUM 8.9 MG/DL (8.5-10.4); CHLORIDE, SERUM 107 MMOL/L (96-112); CO2 (CARBON DIOXIDE) 23 MMOL/L (24-34); CREATININE 1.86 MG/DL (0.55-1.02); GFR AFRICAN AMERICAN 37 ML/MIN (>=60); GFR NON AFRICAN AMERICAN 32 ML/MIN (>=60); POTASSIUM, SERUM 3.8 MMOL/L (3.5-5.3); SODIUM, SERUM 143 MMOL/L (135-148)
[2017-01-01 06:03] LABS: GLUCOSE, SERUM 76 MG/DL (60-99)
[2017-01-01] MEDS ORDERED: COREG6 PO (12:36)
[2017-01-01] MEDS ORDERED: ZOFRAN ODT4 MG PO (12:37)
[2017-01-01] MEDS ORDERED: PEP20 PO (12:38)
[2017-01-01] MEDS ORDERED: MVI PO (12:39)
[2017-01-01] MEDS ORDERED: FLORASTOR250 MG PO (12:40)
[2017-01-01] MEDS ORDERED: BACDS PO (12:42)
[2017-01-01] MEDS ORDERED: VANCOCIN HCL125 MG PO (12:45)
[2017-01-01] MEDS ORDERED: XARELTO15 MG PO (12:46)
[2017-01-01] MEDS ORDERED: XARELTO20 MG PO (12:46)
[2017-01-01] MEDS ORDERED: VANCOCIN HCL125 MG PO/LIQ (12:50)
== END 2017-01-01 14:57 | disposition home or self-care (01) | DRG 315 ==
LOC: ER 16:07 → 7NO 19:18
PROVIDERS: Emergency Medicine; Hospitalist; Internal Medicine; Nurse Practitioner Acute Care; Nurse Practitioner Gerontology
PROC: 05PYX3Z Removal of Infusion Device from Upper Vein, External Approach (ICD-10-PCS; 2016-12-29)
PROC: 0TP98DZ Removal of Intraluminal Device from Ureter, Via Natural or Artificial Opening Endoscopic (ICD-10-PCS; principal; 2016-12-30)
PROC: 30233N1 Transfusion of Nonautologous Red Blood Cells into Peripheral Vein, Percutaneous Approach (ICD-10-PCS; 2016-12-30)
DX: T82.818A Embolism due to vascular prosthetic devices, implants and grafts, initial encounter (principal); I96 Gangrene, not elsewhere classified; N17.9 Acute kidney failure, unspecified; N18.3 Chronic kidney disease, stage 3 (moderate); A04.7 Enterocolitis due to Clostridium difficile; I82.621 Acute embolism and thrombosis of deep veins of right upper extremity; I82.C11 Acute embolism and thrombosis of right internal jugular vein; N20.1 Calculus of ureter; N39.0 Urinary tract infection, site not specified; I12.9 Hypertensive chronic kidney disease with stage 1 through stage 4 chronic kidney disease, or unspecified chronic kidney disease; D50.9 Iron deficiency anemia, unspecified; B95.62 Methicillin resistant Staphylococcus aureus infection as the cause of diseases classified elsewhere; Z87.442 Personal history of urinary calculi
CPT/HCPCS: 36415; 36589; 71010; 74176; 77001; 78582; 80048; 80053; 81001; 82728; 82962; 83605; 83735; 84100; 84145; 85014; 85018; 85025; 85045; 85610; 85730; 86850; 86900; 86901; 86920; 87040; 87077; 87086; 87186; 93005; 93306; 93925; 93931; 93971; 96374; 96375; 97161-GP; 97166-GO; 99152; 99153; 99291; A9270-GY; A9540; A9567; J1750; J2250; J2405; J3010; J3370; P9016